=== PATIENT | female | born 2000 | race Caucasian/White ===

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

== ENCOUNTER 2020-05-11 14:12 | Emergency (ER) | payer OTHER ==
[~2020-05-11] VITALS: Ht 157.5 cm; Wt 61.2 kg
[2020-05-11 14:23] VITALS: BP 125/81
--- NOTE | 2020-05-11 14:35 | NUR ---
SEEN AND EXAMINED BY .
[2020-05-11] MEDS ORDERED: DEXAMETHASONE 1 MG TABLET ONE (14:40)
[2020-05-11] MEDS ORDERED: DEXAMETHASONE 4 MG TABLET ONE (14:40)
[2020-05-11] MEDS ORDERED: DEXAMETHASONE SOLN 5 MG/5 ML UDC ONE (14:42)
[2020-05-11] MEDS: DEXAMETHASONE SOLN 5 MG/5 ML UDC PO ONE (14:44)
--- NOTE | 2020-05-11 14:44 | NUR ---
Patient discharged to home in stable condition. Written and verbal after care instructions given. Patient verbalizes understanding of instruction.
== END 2020-05-11 14:45 | disposition home or self-care (01) ==
LOC: ER 14:15
DX: J02.9 Acute pharyngitis, unspecified (principal)
CPT/HCPCS: 99283; J8540